=== PATIENT | male | born 1995 | race Caucasian/White ===

== ENCOUNTER 2018-04-19 10:57 | Emergency (ER) | payer OTHER ==
[2018-04-19 11:04] VITALS: BP 128/75; PULSE 100; RESP 18; TEMP 97.1
[2018-04-19] MEDS ORDERED: ONDANSETRON ODT 8 MG TAB.RAPDIS PO STA (11:11)
[2018-04-19] MEDS ORDERED: MAG HYDROX/AL HYDROX/SIMETH 30 ML, HYOSCYAMINE ELIXIR 10 ML, CIMETIDINE HCL 300 MG PO STA ×3 (11:11)
--- NOTE | 2018-04-19 11:15 | ED ---
Nausea/Vomiting/Diarrhea HPI - General Chief complaint: Nausea/Vomiting/Diarrhea Stated complaint: Throat Pain Time Seen by Provider: 04/19/18 11:11 Source: patient, RN notes reviewed, old records reviewed Mode of arrival: ambulatory Limitations: no limitations - History of Present Illness Initial comments: This is a 22-year-old male to the ER for evaluation nausea, reflux. Patient does appear to be mildly anxious with history of anxiety. Patient states symptoms have become pretty debilitating for himself. He tried over-the- counter medications and therapies. Again he denies any recent pain, no shortness of breath. No significant recent weight loss either. MD complaint: nausea -: month(s) Description of Vomiting: food contents Description of Diarrhea: other (Ascitic) Associated Abdominal Pain: No Radiation: none Severity: mild Consistency: constant Improves with: eating Worsens with: vomiting - Related Data Previous Rx's Medication Instructions Recorded Famotidine [Pepcid] 20 mg PO DAILY #30 tablet 04/19/18 Ondansetron Odt [Zofran ODT] 4 mg PO Q8HR PRN #30 tab 04/19/18 Pantoprazole Sodium [Protonix] 20 mg PO DAILY #30 tablet. 04/19/18 Allergies Allergy/AdvReac Type Severity Reaction Status Date / Time No Known Allergies Allergy Verified 04/19/18 11:04 Review of Systems ROS Statement: Those systems with pertinent positive or pertinent negative responses have been documented in the HPI. ROS Other: All systems not noted in ROS Statement are negative. Past Medical History Past Medical History: No Reported History History of Any Multi-Drug Resistant Organisms: None Reported Additional Past Surgical History / Comment(s): right arm skin removal Past Psychological History: No Psychological Hx Reported Smoking Status: Former smoker Past Alcohol Use History: Rare Past Drug Use History: Marijuana General Exam Limitations: no limitations General appearance: alert, in no apparent distress Head exam: Present: atraumatic, normocephalic, normal inspection Eye exam: Present: normal appearance, PERRL, EOMI. Absent: scleral icterus, conjunctival injection, periorbital swelling ENT exam: Present: normal exam, mucous membranes moist Neck exam: Present: normal inspection. Absent: tenderness, meningismus, lymphadenopathy Respiratory exam: Present: normal lung sounds bilaterally. Absent: respiratory distress, wheezes, rales, rhonchi, stridor Cardiovascular Exam: Present: regular rate, normal rhythm, normal heart sounds. Absent: systolic murmur, diastolic murmur, rubs, gallop, clicks GI/Abdominal exam: Present: soft, normal bowel sounds. Absent: distended, tenderness, guarding, rebound, rigid Extremities exam: Present: normal inspection, full ROM, normal capillary refill. Absent: tenderness, pedal edema, joint swelling, calf tenderness Back exam: Present: normal inspection Neurological exam: Present: alert, oriented X3, CN II-XII intact Psychiatric exam: Present: normal affect, normal mood Skin exam: Present: warm, dry, intact, normal color. Absent: rash Course Vital Signs 04/19/18 11:01 Temperature 97.1 F L Pulse Rate 100 Respiratory 18 Rate Blood Pressure 128/75 O2 Sat by Pulse 97 Oximetry - Reevaluation(s) Reevaluation #1: 04/19/18 11:59 Record is reviewed Reevaluation #2: 04/19/18 12:00 A she is discussed at length regarding therapy, need to see GI in the future. Patient is understanding Medical Decision Making - Medical Decision Making 22 male the ER for evaluation will be given follow-up with GI, to continue over- the-counter therapy for reflux Disposition Clinical Impression: Nausea & vomiting, GERD (gastroesophageal reflux disease) Disposition: HOME SELF-CARE Condition: Good Instructions: Gastroesophageal Reflux Disease (ED), Acute Nausea and Vomiting ( ED) Prescriptions: Famotidine [Pepcid] 20 mg PO DAILY #30 tablet Ondansetron Odt [Zofran ODT] 4 mg PO Q8HR PRN #30 tab PRN Reason: nausea/vomiting Pantoprazole Sodium [Protonix] 20 mg PO DAILY #30 tablet.dr Is patient prescribed a controlled substance at d/c from ED?: No Referrals: Isidoro Zurita MD [STAFF PHYSICIAN] - 1-2 days
== END 2018-04-19 12:01 | disposition home or self-care (01) ==
LOC: EC 10:57
DX: K21.9 Gastro-esophageal reflux disease without esophagitis (principal); Z87.891 Personal history of nicotine dependence
CPT/HCPCS: 99283

== ENCOUNTER 2018-07-14 10:36 | Emergency (ER) | payer OTHER ==
--- NOTE | 2018-07-14 11:48 | XR ---
EXAMINATION TYPE: XR chest 2V DATE OF EXAM: 07/14/2018 COMPARISON: NONE TECHNIQUE: PA and lateral views submitted. HISTORY: Hemoptysis FINDINGS: The lungs are clear and there is no pneumothorax, pleural effusion, or focal pneumonia. Mild hyperi nflation no overt failure IMPRESSION: 1. No acute process.
--- NOTE | 2018-07-14 12:14 | ED ---
Recheck HPI - General Chief Complaint: Recheck/Abnormal Lab/Rx Stated Complaint: spitting up blood Time Seen by Provider: 07/14/18 11:19 Source: patient, RN notes reviewed, old records reviewed Mode of arrival: ambulatory Limitations: no limitations - History of Present Illness Initial Comments: This is a 22-year-old male the ER for evaluation, patient noted for spitting up blood today. Patient states as he was brushing his teeth and after he brushes states he had some vomiting, coughing up of blood spitting up of blood. Patient became very nervous of this. Patient does suffer from reflux disease. Patient denies any current abdominal pain, not currently actively vomiting or coughing up blood. Patient does not feel lightheaded dizzy or weak has no specific pain. MD Complaint: other (Patient for reevaluation of gastritis, hematemesis) -: month(s) Returns Today for: persistent/worsening pain related to initial visit Symptoms Since Prior Visit: worsening pain Context: other (Medications no longer working) Associated Symptoms: none - Related Data Home Medications Medication Instructions Recorded Confirmed Dextroamphetamine/Amphetamine 30 mg PO BID 07/14/18 07/14/18 [Adderall] Ranitidine HCl [Zantac] 150 mg PO AC-SUPPER 07/14/18 07/14/18 Previous Rx's Medication Instructions Recorded Famotidine [Pepcid] 20 mg PO BID #60 tablet 07/14/18 Allergies Allergy/AdvReac Type Severity Reaction Status Date / Time No Known Allergies Allergy Verified 07/14/18 11:01 Review of Systems ROS Statement: Those systems with pertinent positive or pertinent negative responses have been documented in the HPI. ROS Other: All systems not noted in ROS Statement are negative. Past Medical History Past Medical History: GERD/Reflux History of Any Multi-Drug Resistant Organisms: None Reported Additional Past Surgical History / Comment(s): right arm skin removal Past Psychological History: No Psychological Hx Reported Smoking Status: Former smoker Past Alcohol Use History: Rare Past Drug Use History: Marijuana General Exam Limitations: no limitations General appearance: alert, in no apparent distress Head exam: Present: atraumatic, normocephalic, normal inspection Eye exam: Present: normal appearance, PERRL, EOMI. Absent: scleral icterus, conjunctival injection, periorbital swelling ENT exam: Present: normal exam, mucous membranes moist Neck exam: Present: normal inspection. Absent: tenderness, meningismus, lymphadenopathy Respiratory exam: Present: normal lung sounds bilaterally. Absent: respiratory distress, wheezes, rales, rhonchi, stridor Cardiovascular Exam: Present: regular rate, normal rhythm, normal heart sounds. Absent: systolic murmur, diastolic murmur, rubs, gallop, clicks GI/Abdominal exam: Present: soft, normal bowel sounds. Absent: distended, tenderness, guarding, rebound, rigid Extremities exam: Present: normal inspection, full ROM, normal capillary refill. Absent: tenderness, pedal edema, joint swelling, calf tenderness Back exam: Present: normal inspection Neurological exam: Present: alert, oriented X3, CN II-XII intact Psychiatric exam: Present: normal affect, normal mood Skin exam: Present: warm, dry, intact, normal color. Absent: rash Course Vital Signs 07/14/18 07/14/18 10:48 12:24 Temperature 97.8 F 97.6 F Pulse Rate 93 71 Respiratory 18 17 Rate Blood Pressure 102/71 112/72 O2 Sat by Pulse 100 98 Oximetry Medical Decision Making - Medical Decision Making 22 male the ER for evaluation of hematemesis. Patient advised to follow-up with GI for evaluation of gastric disease. Patient started on antihistamine, Pepcid. Patient can be discharged home - Radiology Data Radiology results: report reviewed (Chest x-rays negative for acute disease), image reviewed Disposition Clinical Impression: GERD (gastroesophageal reflux disease), Ulcer Disposition: HOME SELF-CARE Condition: Good Instructions: Gastritis (ED) Prescriptions: Famotidine [Pepcid] 20 mg PO BID #60 tablet Is patient prescribed a controlled substance at d/c from ED?: No Referrals: Isidoro Zurita MD [STAFF PHYSICIAN] - 1-2 days
[2018-07-14 12:26] VITALS: BP 112/72; PULSE 71; RESP 17; TEMP 97.6
== END 2018-07-14 12:25 | disposition home or self-care (01) ==
LOC: EC 10:36
DX: K21.9 Gastro-esophageal reflux disease without esophagitis (principal); K25.9 Gastric ulcer, unspecified as acute or chronic, without hemorrhage or perforation; Z87.891 Personal history of nicotine dependence; Z98.890 Other specified postprocedural states; Z79.899 Other long term (current) drug therapy
CPT/HCPCS: 71046; 99284

== ENCOUNTER 2018-09-04 10:46 | Day surgery (SDC) | payer OTHER ==
[2018-09-04] MEDS ORDERED: LACTATED RINGERS 1,000 ML IV SCH (11:41)
[2018-09-04] MEDS ORDERED: LIDOCAINE 1% 20 ML VIAL (10MG/ML) FOR IV START INTRADERMA PRN (11:41)
[2018-09-04 11:46] VITALS: RESP 16; TEMP 97.2
[2018-09-04] MEDS ORDERED: PROPOFOL 10 MG/ML 20 ML VIAL IV ONE (13:14)
--- NOTE | 2018-09-04 13:46 | P.PCN ---
Date of Procedure: 09/04/18 Procedure(s) Performed: Procedure: Esophagogastroduodenoscopy and biopsy. Preoperative diagnosis: Gastroesophageal reflux and upper GI bleeding. Postoperative diagnosis: 1. Sliding hiatal hernia with no definite esophagitis or complicated reflux disease. 2. Mild antral gastritis. 3. [id number] duodenitis. 4. Multiple biopsies obtained from the duodenum, antrum and esophagus. Preparation and sedation: Was provided by anesthesia. Brief clinical history: The patient is a 22-year-old male who was evaluated in the office last month referred for gastroesophageal reflux. He was in the emergency room in July because of spitting up blood. He also complains of dysphagia with liquids. He has been on acid suppressive therapy since the summer. He has stopped smoking in August 2017 around the time when his symptoms started. He drank excessively at college but has stopped drinking a lcohol in September 2017 last year. No weight loss or any additional alarm symptoms. Procedure: With the patient on his left lateral decubitus position and after informed consent and adequate sedation, I passed the Olympus-GIF H190 video upper endoscope through the cricopharyngeus down the esophagus. GE junction was around 42-43 cm from the incisors and there was a 1-2 cm sliding hiatal hernia but no obvious esophagitis or complicated reflux disease. The endoscope was then passed into the stomach which was insufflated with air and inspected in detail including the retroflex view in the cardia. There was some mottling and erythema in the antrum but no ulcers or erosions. Pyloric channel did not show any ulcers. Duodenal bulb showed erythema and friability and some exudate but no obvious ulcers or erosions or any bleeding. Post bulbar area and descending duodenum appeared within normal limits. I obtained biopsies from the duodenum, antrum and esophagus then the endoscope was withdrawn. The patient tolerated the procedure well. Plan: The patient was reassured. Will continue acid suppressive therapy will await the biopsy results. Further plans will be made based on his course and biopsy results. I will keep you updated on his progress.
[2018-09-04 14:05] VITALS: BP 109/73; PULSE 60
== END 2018-09-04 14:22 | disposition home or self-care (01) ==
LOC: ORWHC2ENDO 10:46
DX: K21.0 Gastro-esophageal reflux disease with esophagitis (principal); K29.70 Gastritis, unspecified, without bleeding; K29.80 Duodenitis without bleeding; K31.9 Disease of stomach and duodenum, unspecified; K44.9 Diaphragmatic hernia without obstruction or gangrene; R13.10 Dysphagia, unspecified; Z79.899 Other long term (current) drug therapy; Z87.891 Personal history of nicotine dependence
CPT/HCPCS: 43239; 88305

== ENCOUNTER → 2020-05-18 | Outpatient (CLI) | payer OTHER | END | disposition home or self-care (01) | LOC: RADUSWWP 13:01 | PROVIDERS: ATTEND Podiatrist Foot & Ankle Surgery | DX: I73.9 Peripheral vascular disease, unspecified (principal) | CPT/HCPCS: 93922 ==

== ENCOUNTER 2020-11-22 15:47 | Emergency (ER) | payer OTHER ==
[2020-11-22] MEDS ORDERED: fentaNYL (PF) 50 MCG/ML 2 ML AMP IVP ONE (15:51)
[2020-11-22] MEDS ORDERED: fentaNYL (PF) 50 MCG/ML 2 ML AMP IVP STA (15:51)
[2020-11-22] MEDS ORDERED: SODIUM CHLORIDE 0.9% 500 ML 500 ML IV STA (15:53)
[2020-11-22] MEDS ORDERED: DIPH,PERTUS(ACELL)TETVAC-LF 0.5 ML VIAL IM ONE (15:53)
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
[2020-11-22] MEDS ORDERED: fentaNYL (PF) 50 MCG/ML 2 ML AMP IVP PRN ×2 (16:09→17:46)
[2020-11-22 16:10] LABS: Basophils % (A) 0 %; Eosinophils # (A) 0.4 k/uL (0-0.7); Eosinophils % (A) 4 %; HCT 42.1 % (39.0-53.0); HGB 14.4 gm/dL (13.0-17.5); Lymphocytes # (A) 2.2 k/uL (1.0-4.8); Lymphocytes % (A) 24 %; MCH 29.7 pg (25.0-35.0); MCHC 34.1 g/dL (31.0-37.0); MCV 87.1 fL (80.0-100.0); Mean Platelet Volume 7.7; Monocytes # (A) 0.5 k/uL (0-1.0); Monocytes % (A) 6 %; Neutrophils # (A) 5.6 k/uL (1.3-7.7); Neutrophils % (A) 64 %; Platelet Count 276 k/uL (150-450); RBC 4.83 m/uL (4.30-5.90); RDW 12.9 % (11.5-15.5); WBC 8.8 k/uL (3.8-10.6)
[2020-11-22 16:15] LABS: Glucose,Whole Blood 151 mg/dL (75-99)
--- NOTE | 2020-11-22 16:20 | XR ---
EXAMINATION TYPE: XR pelvis AP view DATE OF EXAM: 11/22/2020 CLINICAL HISTORY: pain TECHNIQUE: Single view the pelvis is submitted. FINDINGS: Right hip dislocation identified. No visible fracture at this time. SI joints appear symmetric. IMPRESSION: 1. Right hip dislocation. ICD 10 NO FRACTURE, INITIAL EVALUATION
--- NOTE | 2020-11-22 16:21 | XR ---
EXAMINATION TYPE: XR chest 1V portable DATE OF EXAM: 11/22/2020 COMPARISON: 05/14/2019 HISTORY: Chest pain TECHNIQUE: Single frontal view of the chest is obtained. FINDINGS: There is no focal air space opacity, pleural effusion, or pneumothorax seen. The cardiac silhouette size is within normal limits. The osseous structures are intact. IMPRESSION: 1. No acute process.
[2020-11-22 16:22] LABS: Partial Thromboplastin Time 23.8 sec (22.0-30.0); Prothrombin Time 10.9 sec (9.0-12.0)
[2020-11-22] MEDS ORDERED: PROPOFOL 10 MG/ML 20 ML VIAL IV STA (16:24)
--- NOTE | 2020-11-22 16:24 | XR ---
EXAMINATION TYPE: XR wrist limited LT DATE OF EXAM: 11/22/2020 CLINICAL HISTORY: pain TECHNIQUE: Frontal, lateral images of the left wrist are obtained. COMPARISON: None. FINDINGS: Radial styloid fracture noted. Additional tiny ossific density adjacent to the triquetrum. Dorsal soft tissue swelling seen. IMPRESSION: As above
[2020-11-22 16:34] LABS: ALT 26 U/L (4-49); AST 36 U/L (17-59); African American GFR (CKD) >90 (>60 ml/min/1.73 sqM); Albumin 5.1 g/dL (3.5-5.0); Alcohol <10 mg/dL; Alkaline Phosphatase 81 U/L (38-126); Anion Gap 10 mmol/L; Blood Urea Nitrogen 14 mg/dL (9-20); Calcium 10.1 mg/dL (8.4-10.2); Carbon Dioxide 21 mmol/L (22-30); Chloride 105 mmol/L (98-107); Glucose 165 mg/dL (74-99); Non-African American GFR(CKD) >90 (>60 ml/min/1.73 sqM); Potassium 4.4 mmol/L (3.5-5.1); Sodium 136 mmol/L (137-145); Total Protein 7.9 g/dL (6.3-8.2)
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
[2020-11-22 17:51] VITALS: TEMP 98.1
[2020-11-22 17:51] LABS: Appearance,Urine Clear (Clear); Bilirubin,Urine Negative (Negative); Blood,Urine Negative (Negative); Color,Urine Light Yellow; Glucose,Urine (UA) Negative (Negative); Ketones,Urine Negative (Negative); Leukocyte Esterase,Urine Negative (Negative); Nitrite,Urine Negative (Negative); Protein,Urine Negative (Negative); Specific Gravity,Urine 1.039 (1.001-1.035); Urobilinogen,Urine <2.0 mg/dL (<2.0)
[2020-11-22 18:01] VITALS: PULSE 89; RESP 15
[2020-11-22 18:04] LABS: Amphetamine Screen,Urine Not Detected (NotDetected); Barbiturate Screen,Urine Not Detected (NotDetected); Benzodiazepines Screen,Urine Not Detected (NotDetected); Cocaine Screen,Urine Not Detected (NotDetected); Methadone Screen, Urine Not Detected (NotDetected); Opiate Screen,Urine Not Detected (NotDetected); Oxycodone Screen, Urine Not Detected (NotDetected); Phencyclidine Screen,Urine Not Detected (NotDetected); Tricyclic Antidepressant,Urine Not Detected (NotDetected); Urn Cannabinoid Scrn Detected (NotDetected)
[2020-11-22 18:40] VITALS: BP 140/86
== END 2020-11-22 18:40 | disposition other institution (70) ==
LOC: EC 15:47
DX: S32.401A Unspecified fracture of right acetabulum, initial encounter for closed fracture (principal); S52.512A Displaced fracture of left radial styloid process, initial encounter for closed fracture; S62.112A Displaced fracture of triquetrum [cuneiform] bone, left wrist, initial encounter for closed fracture; S01.81XA Laceration without foreign body of other part of head, initial encounter; S80.212A Abrasion, left knee, initial encounter; K21.9 Gastro-esophageal reflux disease without esophagitis; F12.90 Cannabis use, unspecified, uncomplicated; V43.53XA Car driver injured in collision with pick-up truck in traffic accident, initial encounter; Y92.410 Unspecified street and highway as the place of occurrence of the external cause
CPT/HCPCS: 36415; 93005; 86900; 86901; 80053; 84484; 85025; 85610; 85730; 86850; 81003; 80306; 80320; 72170; 73501; 73100; 71045; 72125; 70450; 71260; 74177; 90715; 99285; 27222; 96374; 96375; 96376; 90471; J3010; J2704; Q9967

== ENCOUNTER 2020-11-25 23:36 | Emergency (ER) | payer OTHER ==
[2020-11-25 23:46] VITALS: BP 117/66; PULSE 104; RESP 19; TEMP 97.4
[2020-11-26] MEDS ORDERED: HYDROmorphone 1 MG/ML 1 ML SYRINGE IVP STA (00:16)
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
--- NOTE | 2020-11-26 00:47 | XR ---
EXAM: XR Abdomen, 1 View CLINICAL HISTORY: ITS.REASON XR Reason: Constipation TECHNIQUE: Frontal supine view of the abdomen/pelvis. COMPARISON: No relevant prior studies available. FINDINGS: Gastrointestinal tract: Nonobstructive bowel gas pattern. Moderate stool in the right colon. Bones/joints: There are 2 screws fixating the right greater trochanter. There is [id number] fixation of the right acetabulum. Soft tissues: Soft tissue swelling lateral to the right hip with skin closure myra in place. IMPRESSION: 1. Nonobstructive bowel gas pattern. 2. Moderate stool in the right colon.
== END 2020-11-26 01:44 | disposition home or self-care (01) ==
LOC: EC 23:36
DX: G89.18 Other acute postprocedural pain (principal); M25.551 Pain in right hip; S00.81XA Abrasion of other part of head, initial encounter; K59.00 Constipation, unspecified; K21.9 Gastro-esophageal reflux disease without esophagitis; V89.2XXA Person injured in unspecified motor-vehicle accident, traffic, initial encounter; Y92.410 Unspecified street and highway as the place of occurrence of the external cause
CPT/HCPCS: 74018; 99283; 96374; J1170